=== PATIENT | female | born 1980 | race Caucasian/White ===

== ENCOUNTER 2017-07-18 12:14 | Outpatient (CLI) | payer BC | END 2017-07-18 12:15 | disposition home or self-care (01) | LOC: BICRAD 12:14 | PROVIDERS: ATTEND Family Medicine | DX: S02.2XXA Fracture of nasal bones, initial encounter for closed fracture (principal) | CPT/HCPCS: 70160 ==

== ENCOUNTER 2023-06-13 10:04 | Outpatient (CLI) | payer OTHER | END 2023-06-13 10:05 | disposition home or self-care (01) | LOC: ULT 10:04 | PROVIDERS: ATTEND Family Medicine | DX: R10.84 Generalized abdominal pain (principal) | CPT/HCPCS: 76700 ==